=== PATIENT | male | born 1980 | race American Indian/Alaskan Native ===

== ENCOUNTER 2016-09-15 22:31 | Emergency (ER) | payer OTHER ==
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
[2016-09-16] MEDS ORDERED: BOOSTRIX IM ONE (03:26)
[2016-09-16] MEDS ORDERED: TORADOL IM ONE (03:26)
[2016-09-16] MEDS ORDERED: MORPHINE IM ONE (03:26)
[2016-09-16 05:17] VITALS: BP 132/89
--- NOTE | 2016-09-16 07:20 | XRay Report ---
LEFT HAND, 2 views: History: Left hand pain The bony architecture is intact. Bony alignment is normal. No soft tissue abnormalities are seen. The joint spaces appear preserved. IMPRESSION: Normal left hand.
--- NOTE | 2016-09-16 07:21 | XRay Report ---
AP CHEST: HISTORY: chest pain An oblique fracture through the middle third of the left clavicle is identified with 9 mm inferior displacement of the distal fragment. No calcified callus. The remaining bony structures are intact. Normal heart and mediastinal structures. The lungs are clear. IMPRESSION: Left clavicle fracture.
--- NOTE | 2016-09-16 07:29 | XRay Report ---
LEFT SHOULDER, 3 VIEWS History: Left shoulder pain. An oblique fracture through the middle third of the clavicle is identified with 9 mm inferior displacement of the distal fragment. No calcified callus. The left scapula and proximal left humerus are intact. Normal articulation at the glenohumeral joint and a.c. joint. Impression: Left clavicle fracture.
--- NOTE | 2016-09-16 09:41 | XRay Report ---
CERVICAL SPINE, 3 views: History: Neck pain. Findings: The vertebral bodies, disk spaces, posterior elements and prevertebral soft tissues are unremarkable. The dens is intact. No acute fracture or malalignment is identified. Impression: 1. No evidence for acute injury to the cervical spine.
== END 2016-09-16 05:30 | disposition home or self-care (01) ==
LOC: ED 22:31
DX: S42.002A Fracture of unspecified part of left clavicle, initial encounter for closed fracture (principal); V49.49XA Driver injured in collision with other motor vehicles in traffic accident, initial encounter; Y93.9 Activity, unspecified; Y92.9 Unspecified place or not applicable; Y99.9 Unspecified external cause status
CPT/HCPCS: 71010; 72040; 73030; 73120; 90471; 90715; 96372; 99284; J1885; J2270